=== PATIENT | male | born 1985 | race Caucasian/White ===

== ENCOUNTER 2019-03-07 16:36 | Inpatient (IN) | payer OTHER ==
[2019-03-07 18:29] VITALS: BMI 26.9
--- NOTE | 2019-03-07 19:30 | HP ---
CIWA Score Nausea/Vomitin Muscle Tremors: 1-None Visible, but [place] Anxiety: 2 Agitation: 0-Normal Activity Paroxysmal Sweats: 2 Orientation: 0-Oriented Tacttile Disturbances: 1-Very Mild Itch/Numbness Auditory Disturbances: 0-None Visual Disturbances: 1-Very Mild Sensitivity Headache: 2-Mild CIWA-Ar Total Score: 12 - Admission Criteria OASAS Guidelines: Admission for Medically Managed Detox: Requires at least one of the followin. CIWA greater than 12 2. Seizures within the past 24 hours 3. Delirium tremens within the past 24 hours 4. Hallucinations within the past 24 hours 5. Acute intervention needed for co occurring medical disorder 6. Acute intervention needed for co occurring psychiatric disorder 7. Severe withdrawal that cannot be handled at a lower level of care (continued vomiting, continued diarrhea, abnormal vital signs) requiring intravenous medication and/or fluids 8. Patient presents the following: CIWA greater than 12 Admission Criteria Met: Admission criteria met Admitting History and Physical - Admission Chief Complaint: alcohol withdrawal sx History of Present Illness: Patient is a 33 yo homeless male with hx of alcohol and crack/cocaine dependence is here seeking inpatient detox d/t withdrawal sx. Reports hx of ETOH blackouts with last episode two weeks ago. Patient reports was evaluated at [facility] ED for kidney stones (did not bring discharge summary). Longest period of sobriety one months, approximately five months ago. PMHX: denies . Psych: depression, bipolar and anxiety. Denies SI/HI. History Source: Patient Limitations to Obtaining History: No Limitations - Smoking History Smoking history: Current every day smoker Have you smoked in the past 12 months: Yes Aproximately how many cigarettes per day: 20 - Alcohol/Substance Use Hx Alcohol Use: Yes Admission ROS S - HPI Allergies/Adverse Reactions: Allergies Allergy/AdvReac Type Severity Reaction Status Date / Time No Known Allergies Allergy Verified 03/07/19 18:23 Exam Limitations: No Limitations - Ebola screening Have you traveled outside of the country in the last 21 days: No Have you had contact with anyone from an Ebola affected area: No Do you have a fever: No - Review of Systems Constitutional: Changes in sleep, Unintentional Wgt. Loss EENT: reports: No Symptoms Reported Respiratory: reports: No Symptoms reported Cardiac: reports: No Symptoms Reported GI: reports: Nausea, Poor Appetite, Poor Fluid Intake, Vomiting : reports: See HPI Musculoskeletal: reports: No Symptoms Reported, Back Pain Integumentary: reports: No Symptoms Reported Neuro: reports: No Symptoms reported Endocrine: reports: Increased Thirst Hematology: reports: No Symptoms Reported Psychiatric: reports: Orientated x3, Depressed Other Systems: Reviewed and Negative Patient History - Patient Medical History Hx Anemia: No Hx Asthma: No Hx Chronic Obstructive Pulmonary Disease (COPD): No Hx Cancer: No Hx Cardiac Disorders: No Hx Congestive Heart Failure: No Hx Hypertension: No Hx Hypercholesterolemia: No Hx Pacemaker: No HX Cerebrovascular Accident: No Hx Seizures: No Hx Dementia: No Hx Diabetes: No Hx Gastrointestinal Disorders: No Hx Liver Disease: No Hx Genitourinary Disorders: No Hx Sexually Transmitted Disorders: No Hx Renal Disease (ESRD): No Hx Thyroid Disease: No Hx Human Immunodeficiency Virus (HIV): No (negative) Hx Hepatitis C: No Hx Depression: Yes Hx Suicide Attempt: No (DENIES) Hx Bipolar Disorder: Yes Hx Schizophrenia: No - Patient Surgical History Past Surgical History: No Hx Neurologic Surgery: No Hx Cataract Extraction: No Hx Cardiac Surgery: No Hx Lung Surgery: No Hx Breast Surgery: No Hx Breast Biopsy: No Hx Abdominal Surgery: No Hx Appendectomy: No Hx Cholecystectomy: No Hx Genitourinary Surgery: No Hx Section: No Hx Orthopedic Surgery: Yes (FX RIGHT FOREARM IN 2012) Anesthesia Reaction: No - PPD History Previous Implant?: No Documented Results: Negative w/proof Date: 01/28/14 Results: 0 MM PPD to be Administered?: Yes - Smoking Cessation Smoking history: Current every day smoker Have you smoked in the past 12 months: Yes Aproximately how many cigarettes per day: 20 Cigars Per Day: 0 Hx Chewing Tobacco Use: No Initiated information on smoking cessation: Yes 'Breaking Loose' booklet given: 03/07/19 - Substance & Tx. History Hx Alcohol Use: Yes Hx Substance Use: Yes Substance Use Type: Alcohol, Cocaine, Marijuana Hx Substance Use Treatment: Yes ([facility] two weeks ago ) - Substances abused Alcohol Substance route: Oral Frequency: Daily Amount used: BEER- 2 x SIX PACK + 1 pint of liquor Age of first use: 16 Date of last use: 03/07/19 Crack Substance route: Smoking Frequency: Daily Amount used: 5 BAGS Age of first use: 29 Date of last use: 03/06/19 Admission Physical Exam BHS - Vital Signs Vital Signs: Vital Signs - 24 hr 03/07/19 18:07 Temperature 98.4 F Pulse Rate 82 Respiratory 18 Rate Blood Pressure 99/59 L - Physical General Appearance: Yes: Appropriately Dressed (malodorous), Thin, Sweating, Anxious HEENTM: Yes: EOMI, Hearing grossly Normal, Normal ENT Inspection, Normocephalic , Normal Voice, ANGELA, Pharynx Normal, Tm's normal Respiratory: Yes: Chest Non-Tender, Lungs Clear, Normal Breath Sounds, No Respiratory Distress, No Accessory Muscle Use Neck: Yes: Within Normal Limits Breast: Yes: Breast Exam Deferred Cardiology: Yes: Regular Rhythm, Regular Rate Abdominal: Yes: Normal Bowel Sounds, Non Tender, Flat, Soft Genitourinary: Yes: Within Normal Limits Back: Yes: Normal Inspection Musculoskeletal: Yes: full range of Motion, Gait Steady, Pelvis Stable Extremities: Yes: Normal Capillary Refill, Normal Inspection, Normal Range of Motion, Non-Tender Neurological: Yes: 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 NML intact, Fully Oriented, Alert, Motor Strength 5/5, Depressed Affect Integumentary: Yes: Normal Color, Dry, Warm Lymphatic: Yes: Within Normal Limits - Diagnostic (1) Alcohol dependence with uncomplicated withdrawal Current Visit: Yes Status: Acute (2) Cocaine dependence Current Visit: Yes Status: Chronic Qualifiers: Complication of substance-induced condition: with unspecified complication (3) Nicotine dependence Current Visit: Yes Status: Chronic Qualifiers: Nicotine product type: cigarettes (4) Psychiatric disorder Current Visit: Yes Status: Suspected Cleared for Admission [facility] - Detox or Rehab [facility] Level of Care: Medically Managed Detox Regimen/Protocol: Librium Breathalyzer - Breathalyzer Breathalyzer: 0 Urine Drug Screen - Test Device Lot number: [id number] Expiration date: 09/24/20 - Control Is test valid?: Yes - Results Drug screen NEGATIVE: No Urine drug screen results: THC-Marijuana, MARILUZ-Cocaine, MOP-Opiates, BZO- Benzodiazepines Inpatient Rehab Admission - Rehab Decision to Admit Inpatient rehab admission?: No
[2019-03-07] MEDS ORDERED: ACETAMINOPHEN 325 MG TABLET (FP) PO PRN ×2 (19:32)
[2019-03-07] MEDS ORDERED: chlordiazePOXIDE HCL 10 MG CAPSULE PO PRN (19:32)
[2019-03-07] MEDS ORDERED: IBUPROFEN 400 MG TABLET (FP) PO PRN (19:32)
[2019-03-07] MEDS ORDERED: METHOCARBAMOL 500 MG TABLET PO PRN (19:32)
[2019-03-07] MEDS ORDERED: MAGNESIUM CITRATE 300 ML BOTTLE PO PRN (19:32)
[2019-03-07] MEDS ORDERED: NICOTINE POLACRILEX 2 MG GUM BUC PRN (19:32)
[2019-03-07] MEDS ORDERED: hydrOXYzine PAMOATE 25 MG CAPSULE (FP) PO PRN (19:32)
[2019-03-07] MEDS ORDERED: BISMUTH SUBSALICYLATE 524 MG/30 ML UD PO PRN (19:32)
[2019-03-07] MEDS ORDERED: MENTHOL/PHENOL 1 EACH UD MM PRN (19:32)
[2019-03-07] MEDS ORDERED: MAGNESIUM HYDROX 2400MG/30ML ORAL SUSPENSION 30 ML CUP PO PRN (19:32)
[2019-03-07] MEDS ORDERED: MAG HYDROX/AL HYDROX/SIMETH 30 ML UNIT-DOSE CUP PO PRN (19:32)
[2019-03-07] MEDS ORDERED: PNEUMOC 13-VAL CONJ-DIP CRM/PF 0.5 ML DISP.SYRIN IM ONE (19:50)
[2019-03-07] MEDS: MELATONIN 5 MG TABLETS PO PRN (20:29)
[2019-03-07] MEDS: chlordiazePOXIDE HCL 25 MG CAPSULE PO SCH (20:29)
[2019-03-07] MEDS: THIAMINE HCL 100 MG TABLET (FP) PO SCH (21:29)
[2019-03-08] MEDS: chlordiazePOXIDE HCL 25 MG CAPSULE PO SCH ×3 (05:42→22:56)
--- NOTE | 2019-03-08 09:01 | EKG ---
Test Reason : Blood Pressure : / mmHG Vent. Rate : 071 BPM Atrial Rate : 071 BPM P-R Int : 144 ms QRS Dur : 084 ms QT Int : 392 ms P-R-T Axes : 036 056 042 degrees QTc Int : 425 ms NORMAL SINUS RHYTHM NORMAL ECG NO PREVIOUS ECGS AVAILABLE Confirmed by MILLIE MAYA MD ([id number]) on 03/08/2019 9:00:58 AM Referred By: Confirmed By:MILLIE MAYA MD
[2019-03-08] MEDS: NICOTINE 14 MG/24 HOURS TOPICAL PATCH TD SCH (09:55)
[2019-03-08] MEDS: PRENATAL VITAMINS W/ FOLIC ACID TABLET (FP) PO SCH (09:55)
[2019-03-08 09:57] LABS: HEMATOCRIT 37.6 % (35.4-49); HEMOGLOBIN 12.7 GM/dL (11.7-16.9); MCH 32.8 pg (25.7-33.7); MCHC 33.9 g/dl (32.0-35.9); MEAN CELL VOLUME 96.8 fl (80-96); MEAN PLT VOLUME 7.8 fl (7.5-11.1); PLATELET COUNT 300 K/MM3 (134-434); RBC 3.88 M/mm3 (4.00-5.60); RDW 13.7 % (11.9-15.9)
[2019-03-08 10:24] LABS: ALBUMIN 3.7 g/dl (3.4-5.0); BILIRUBIN,TOTAL 0.6 mg/dL (0.2-1); BLOOD UREA NITROGEN 14.7 mg/dL (7-18); CREATININE 0.9 mg/dL (0.55-1.3); POTASSIUM 4.1 mmol/L (3.5-5.1); TOT PROT 6.4 g/dl (6.4-8.2)
[2019-03-08] MEDS ORDERED: FLU VACCINE QUAD 60 MCG/0.5 ML (MDV 19-20) IM ONE (12:00)
[2019-03-08] MEDS ORDERED: PNEUMOCOCCAL 23 VACCINE 0.5 ML VIAL IM ONE (12:00)
--- NOTE | 2019-03-08 13:37 | CONSULT ---
[facility] Psychiatric Consult - Data Date of interview: 03/08/19 Admission source: [facility] Identifying data: Revisit to [facility] and admission to [address] [place] [address] for this 33 y/o male self-referred for detoxification treatment. AUTUMN issues : alcohol, cocaine/crack, cannabis, nicotine. Patient is single, father of one, homeless, unemployed and supported on welfare. Substance Abuse History: Discussed with patient. Details in current [facility] report as follows : Smoking history: Current every day smoker. Have you smoked in the past 12 months: Yes. Aproximately how many cigarettes per day: 20. Cigars Per Day: 0. Hx Chewing Tobacco Use: No. Initiated information on smoking cessation : Yes. 'Breaking Loose' booklet given: 03/07/19. - Substance & Tx. History. Hx Alcohol Use: Yes. Hx Substance Use: Yes. Substance Use Type: Alcohol, Cocaine, Marijuana. Hx Substance Use Treatment: Yes ([facility] two weeks ago ). - Substances abused. Alcohol. Substance route: Oral. Frequency: Daily. Amount used: BEER- 2 x SIX PACK + 1 pint of liquor. Age of first use: 16. Date of last use: 03/07/19. Crack. Substance route: Smoking. Frequency: Daily. Amount used: 5 BAGS. Age of first use: 29. Date of last use: 03/06/19 Medical History: Patient endorses good general health. Psychiatric History: Patient admits to a history of one psychiatric hospitalization at [facility] (2014). Precipitant : of grand- mother and suicide attempt via self-mutilation in response to his loss. Mr Underwood endorses a number of diagnoses : MDD, Anxiety Disorder, Bipolar Disorder. NOt currently on any psychotropic medications. Used to be prescribed trazodone. Patient indicates that he has dropped out of OPD care at the [facility] clinic. Physical/Sexual Abuse/Trauma History: Traumas : deaths of mother (three years ago) + grand-mother (2014). Additional Comment: Urine drug screen results: THC-Marijuana, MARILUZ-Cocaine, MOP- Opiates, BZO-Benzodiazepines. Noted. Mental Status Exam - Mental Status Exam Alert and Oriented to: Time, Place, Person Cognitive Function: Good Patient Appearance: Well Groomed Mood: Withdrawn, Anxious, Hopeful Affect: Mood Congruent, Constricted Patient Behavior: Fatigued, Appropriate, Cooperative Speech Pattern: Clear Voice Loudness: Normal Thought Process: Intact, Goal Oriented Thought Disorder: Not Present Hallucinations: Denies Suicidal Ideation: Denies Homicidal Ideation: Denies Insight/Judgement: Poor Sleep: Poorly, Difficulty falling asleep Appetite: Good Gait/Station: Normal Psychiatric Findings - Problem List ([place] 1, 2,3) (1) Alcohol dependence with uncomplicated withdrawal Current Visit: Yes Status: Acute (2) Cocaine dependence Current Visit: Yes Status: Chronic Qualifiers: Complication of substance-induced condition: with unspecified complication (3) Cannabis dependence Current Visit: Yes Status: Chronic (4) Nicotine dependence Current Visit: Yes Status: Chronic Qualifiers: Nicotine product type: cigarettes (5) Substance induced mood disorder Current Visit: Yes Status: Chronic (6) Insomnia Current Visit: Yes Status: Chronic - Initial Treatment Plan Initial Treatment Plan: Psychoeducation. Sleep hygiene. Detoxification. Support. AA meetings. Resumed, at patient's request : trazodone 50 mg po hs. Side effects/benefits are discussed with patient (made aware of potential for priapism). Patient agrees with plan of care. Observation.
--- NOTE | 2019-03-08 13:55 | PN ---
[facility] CIWA - CIWA Score Nausea/Vomitin-No Nausea/No Vomiting Muscle Tremors: 1-None Visible, but [place] Anxiety: 1-Mildly Anxious Agitation: 4-Moderately Restless Paroxysmal Sweats: 1-Minimal Palms Moist Orientation: 0-Oriented Tacttile Disturbances: 0-None Auditory Disturbances: 0-None Visual Disturbances: 0-None Headache: 0-None Present CIWA-Ar Total Score: 7 [facility] Progress Note (SOAP) Subjective: Shakes and sweats Objective: 03/08/19 13:52 Vital Signs Temperature 98.8 F 03/08/19 13:11 Pulse Rate 81 03/08/19 13:11 Respiratory Rate 18 03/08/19 13:11 Blood Pressure 112/56 L 03/08/19 13:11 O2 Sat by Pulse Oximetry (%) Laboratory Tests 03/08/19 03/08/19 03/08/19 07:15 07:15 07:15 WBC 6.0 RBC 3.88 L Hgb 12.7 Hct 37.6 MCV 96.8 H MCH 32.8 MCHC 33.9 RDW 13.7 Plt Count 300 MPV 7.8 Sodium 140 Potassium 4.1 Chloride 107 Carbon Dioxide 29 Anion Gap 5 L BUN 14.7 Creatinine 0.9 Est GFR (CKD-EPI)AfAm 128.70 Est GFR (CKD-EPI)NonAf 111.04 Random Glucose 101 Calcium 9.0 Total Bilirubin 0.6 AST 27 ALT 32 Alkaline Phosphatase 54 Total Protein 6.4 Albumin 3.7 RPR Titer Nonreactive HIV 1&2 Antibody Screen HIV P24 Antigen 03/08/19 07:15 WBC RBC Hgb Hct MCV MCH MCHC RDW Plt Count MPV Sodium Potassium Chloride Carbon Dioxide Anion Gap BUN Creatinine Est GFR (CKD-EPI)AfAm Est GFR (CKD-EPI)NonAf Random Glucose Calcium Total Bilirubin AST ALT Alkaline Phosphatase Total Protein Albumin RPR Titer HIV 1&2 Antibody Screen Negative HIV P24 Antigen Negative Labs noted [id number] Ambulating No acute distress noted Assessment: 03/08/19 13:54 Withdrawal symptoms noted Plan: Continue with detox Encouraged fluids
[2019-03-08] MEDS: MELATONIN 5 MG TABLETS PO PRN (22:57)
[2019-03-08] MEDS: THIAMINE HCL 100 MG TABLET (FP) PO SCH (22:57)
[2019-03-09] MEDS: chlordiazePOXIDE 5 MG CAPSULE PO SCH ×3 (05:27→22:18)
[2019-03-09] MEDS: NICOTINE 14 MG/24 HOURS TOPICAL PATCH TD SCH (10:57)
[2019-03-09] MEDS: PRENATAL VITAMINS W/ FOLIC ACID TABLET (FP) PO SCH (10:57)
[2019-03-09 12:27] LABS: PH,URINE 7.5 (5.0-8.0); URINE APPEARANCE CLEAR; URINE BILIRUBIN NEGATIVE (NEGATIVE); URINE COLOR YELLOW; URINE GLUCOSE (UA) NEGATIVE (NEGATIVE); URINE KETONE NEGATIVE (NEGATIVE); URINE LEUK ESTERASE NEGATIVE (NEGATIVE); URINE NITRITE NEGATIVE (NEGATIVE); URINE PROTEIN NEGATIVE (NEGATIVE); URINE UROBILINOGEN 0.2 mg/dL (0.2-1.0)
--- NOTE | 2019-03-09 14:40 | PN ---
[facility] CIWA - CIWA Score Nausea/Vomitin-No Nausea/No Vomiting Muscle Tremors: 2 Anxiety: 1-Mildly Anxious Agitation: 1-Slight > Activity Paroxysmal Sweats: 2 Orientation: 0-Oriented Tacttile Disturbances: 0-None Auditory Disturbances: 0-None Visual Disturbances: 0-None Headache: 0-None Present CIWA-Ar Total Score: 6 [facility] Progress Note (SOAP) Subjective: Tremor Objective: 03/09/19 14:39 Last Vital Signs Temp Pulse Resp BP Pulse Ox 97.5 F L 71 18 106/62 03/09/19 09:30 03/09/19 09:30 03/09/19 09:30 03/09/19 09:30 Laboratory Tests 03/08/19 03/08/19 03/08/19 07:15 07:15 07:15 WBC 6.0 RBC 3.88 L Hgb 12.7 Hct 37.6 MCV 96.8 H MCH 32.8 MCHC 33.9 RDW 13.7 Plt Count 300 MPV 7.8 Sodium 140 Potassium 4.1 Chloride 107 Carbon Dioxide 29 Anion Gap 5 L BUN 14.7 Creatinine 0.9 Est GFR (CKD-EPI)AfAm 128.70 Est GFR (CKD-EPI)NonAf 111.04 Random Glucose 101 Calcium 9.0 Total Bilirubin 0.6 AST 27 ALT 32 Alkaline Phosphatase 54 Total Protein 6.4 Albumin 3.7 Urine Color Urine Appearance Urine pH Ur Specific [place] Urine Protein Urine Glucose (UA) Urine Ketones Urine Blood Urine Nitrite Urine Bilirubin Urine Urobilinogen Ur Leukocyte Esterase RPR Titer Nonreactive HIV 1&2 Antibody Screen HIV P24 Antigen 03/08/19 03/09/19 07:15 Unknown WBC RBC Hgb Hct MCV MCH MCHC RDW Plt Count MPV Sodium Potassium Chloride Carbon Dioxide Anion Gap BUN Creatinine Est GFR (CKD-EPI)AfAm Est GFR (CKD-EPI)NonAf Random Glucose Calcium Total Bilirubin AST ALT Alkaline Phosphatase Total Protein Albumin Urine Color Yellow Urine Appearance Clear Urine pH 7.5 D Ur Specific [place] 1.008 L Urine Protein Negative Urine Glucose (UA) Negative Urine Ketones Negative Urine Blood Negative Urine Nitrite Negative Urine Bilirubin Negative Urine Urobilinogen 0.2 Ur Leukocyte Esterase Negative RPR Titer HIV 1&2 Antibody Screen Negative HIV P24 Antigen Negative Labs reviewed Assessment: 03/09/19 14:39 Withdrawal sxs Plan: Continue detox Encouraged PO water intake
[2019-03-09] MEDS: THIAMINE HCL 100 MG TABLET (FP) PO SCH (22:18)
[2019-03-09] MEDS: MELATONIN 5 MG TABLETS PO PRN (22:18)
[2019-03-10] MEDS ORDERED: chlordiazePOXIDE HCL 10 MG CAPSULE PO PRN
[2019-03-10] MEDS ORDERED: chlordiazePOXIDE HCL 10 MG CAPSULE PO SCH (05:00)
[2019-03-10 09:11] VITALS: BP 115/54; PULSE 88; TEMP 98.1
--- NOTE | 2019-03-10 09:29 | DS ---
[facility] Detox Discharge Summary Admission Date: 03/07/19 Discharge Date: 03/10/19 - History Present History: Alcohol Dependence, Cannabis Dependence, Cocaine Dependence - Physical Exam Results Vital Signs: Vital Signs Temperature 98.1 F 03/10/19 09:10 Pulse Rate 88 03/10/19 09:10 Respiratory Rate 16 03/10/19 09:10 Blood Pressure 115/54 L 03/10/19 09:10 O2 Sat by Pulse Oximetry (%) Pertinent Admission Physical Exam Findings: Vital Signs Temperature 98.1 F 03/10/19 09:10 Pulse Rate 88 03/10/19 09:10 Respiratory Rate 16 03/10/19 09:10 Blood Pressure 115/54 L 03/10/19 09:10 O2 Sat by Pulse Oximetry (%) Laboratory Tests 03/08/19 03/08/19 03/08/19 07:15 07:15 07:15 WBC 6.0 RBC 3.88 L Hgb 12.7 Hct 37.6 MCV 96.8 H MCH 32.8 MCHC 33.9 RDW 13.7 Plt Count 300 MPV 7.8 Sodium 140 Potassium 4.1 Chloride 107 Carbon Dioxide 29 Anion Gap 5 L BUN 14.7 Creatinine 0.9 Est GFR (CKD-EPI)AfAm 128.70 Est GFR (CKD-EPI)NonAf 111.04 Random Glucose 101 Calcium 9.0 Total Bilirubin 0.6 AST 27 ALT 32 Alkaline Phosphatase 54 Total Protein 6.4 Albumin 3.7 Urine Color Urine Appearance Urine pH Ur Specific [place] Urine Protein Urine Glucose (UA) Urine Ketones Urine Blood Urine Nitrite Urine Bilirubin Urine Urobilinogen Ur Leukocyte Esterase RPR Titer Nonreactive HIV 1&2 Antibody Screen HIV P24 Antigen 03/08/19 03/09/19 07:15 Unknown WBC RBC Hgb Hct MCV MCH MCHC RDW Plt Count MPV Sodium Potassium Chloride Carbon Dioxide Anion Gap BUN Creatinine Est GFR (CKD-EPI)AfAm Est GFR (CKD-EPI)NonAf Random Glucose Calcium Total Bilirubin AST ALT Alkaline Phosphatase Total Protein Albumin Urine Color Yellow Urine Appearance Clear Urine pH 7.5 D Ur Specific [place] 1.008 L Urine Protein Negative Urine Glucose (UA) Negative Urine Ketones Negative Urine Blood Negative Urine Nitrite Negative Urine Bilirubin Negative Urine Urobilinogen 0.2 Ur Leukocyte Esterase Negative RPR Titer HIV 1&2 Antibody Screen Negative HIV P24 Antigen Negative aaox3 ambulating no acute distress - Treatment Hospital Course: Detox Protocol Followed, Detoxed Safely, Responded well, Discharged Condition Good, Rehab Referral Accepted Patient has Accepted a Rehab Referral to: referral to [facility] - Medication Discharge Medications: Ambulatory Orders NK [No Known Home Medication] 03/07/19 - Diagnosis (1) Alcohol dependence with uncomplicated withdrawal Current Visit: Yes Status: Chronic (2) Cannabis dependence Current Visit: Yes Status: Chronic (3) Cocaine dependence Current Visit: Yes Status: Chronic Qualifiers: Complication of substance-induced condition: with unspecified complication (4) Insomnia Current Visit: Yes Status: Chronic (5) Nicotine dependence Current Visit: Yes Status: Chronic Qualifiers: Nicotine product type: cigarettes Substance use status: uncomplicated Qualified Code(s): F17.210 - Nicotine dependence, cigarettes, uncomplicated (6) Substance induced mood disorder Current Visit: Yes Status: Chronic (7) Psychiatric disorder Current Visit: Yes Status: Suspected (8) Substance-induced sleep disorder Current Visit: No Status: Acute (9) Bipolar disorder Current Visit: No Status: Chronic (10) Depression Current Visit: No Status: Chronic - AMA Did Patient Leave Against Medical Advice: No
[2019-03-11] MEDS ORDERED: chlordiazePOXIDE HCL 10 MG CAPSULE PO ONE (05:00)
== END 2019-03-10 09:52 | disposition home or self-care (01) | DRG 774 ==
LOC: YASAS 16:36 → Y6N 19:49
PROVIDERS: ADMIT Allergy & Immunology; ATTEND Allergy & Immunology
PROC: HZ2ZZZZ Detoxification Services for Substance Abuse Treatment (ICD-10-PCS; principal; 2019-03-07)
DX: F10.230 Alcohol dependence with withdrawal, uncomplicated (principal); F14.20 Cocaine dependence, uncomplicated; F12.20 Cannabis dependence, uncomplicated; F17.213 Nicotine dependence, cigarettes, with withdrawal; F19.24 Other psychoactive substance dependence with psychoactive substance-induced mood disorder; F19.282 Other psychoactive substance dependence with psychoactive substance-induced sleep disorder; F99 Mental disorder, not otherwise specified; F31.9 Bipolar disorder, unspecified; G47.00 Insomnia, unspecified; Z59.0 Homelessness
CPT/HCPCS: 36415; 80053; 81003; 85027; 86593; 87389; 90732; 93005; 93010; G0008; G0009; Q2036

== ENCOUNTER 2019-04-01 09:36 | Inpatient (IN) | payer OTHER ==
[2019-04-01 10:09] VITALS: BMI 27.6
--- NOTE | 2019-04-01 11:00 | HP ---
CIWA Score Nausea/Vomitin Muscle Tremors: 3 Anxiety: 3 Agitation: 0-Normal Activity Paroxysmal Sweats: No Perspiration Orientation: 0-Oriented Tacttile Disturbances: 1-Very Mild Itch/Numbness Auditory Disturbances: 2-Mild Harshness/Frighten Visual Disturbances: 2-Mild Sensitivity Headache: 2-Mild CIWA-Ar Total Score: 15 - Admission Criteria OASAS Guidelines: Admission for Medically Managed Detox: Requires at least one of the followin. CIWA greater than 12 2. Seizures within the past 24 hours 3. Delirium tremens within the past 24 hours 4. Hallucinations within the past 24 hours 5. Acute intervention needed for co occurring medical disorder 6. Acute intervention needed for co occurring psychiatric disorder 7. Severe withdrawal that cannot be handled at a lower level of care (continued vomiting, continued diarrhea, abnormal vital signs) requiring intravenous medication and/or fluids 8. Admitting History and Physical - Admission Chief Complaint: Mr. Underwood presents today stating " I wanted to get some help" "the last time I had it I fooled myself". He states that alcohol has "become a big problem for me". History of Present Illness: Mr. Underwood presents today stating " I wanted to get some help" "the last time I had it I fooled myself". He states that alcohol has "become a big problem for me". PMH: noncontributory Psych; bipolar, anxiety Substance use History: EtOH: first use age 15 yo, last use yesterday/this am, quantinty 2 t6 packs of 16 ounce beer. Vodka/hard liquor every other day, one pint. Crack cocaine: first use age 29y, last use yesterday, am[place]: $200/day Nicotine: first use age 16 y, last use: yesterday: one ppd Marijuana: first age 13 y, last use yesterday, quantity: 2 bags/day Denies: heroin, methadone, benzodiazepines History Source: Patient Limitations to Obtaining History: No Limitations - Smoking History Smoking history: Current every day smoker Have you smoked in the past 12 months: Yes Aproximately how many cigarettes per day: 20 - Alcohol/Substance Use Hx Alcohol Use: Yes Admission ROS S - HPI Allergies/Adverse Reactions: Allergies Allergy/AdvReac Type Severity Reaction Status Date / Time No Known Allergies Allergy Verified 04/01/19 09:58 Exam Limitations: No Limitations - Ebola screening Have you traveled outside of the country in the last 21 days: No Have you had contact with anyone from an Ebola affected area: No Have you been sick,other than usual withdrawal symptoms: No Do you have a fever: No - Review of Systems Constitutional: No Symptoms Reported, Unexplained wgt Loss (~ 20-30 lb weight loss over the past 3 weeks) EENT: reports: No Symptoms Reported Respiratory: reports: No Symptoms reported Cardiac: reports: No Symptoms Reported GI: reports: See HPI, Diarrhea : reports: No Symptoms Reported Musculoskeletal: reports: No Symptoms Reported Integumentary: reports: No Symptoms Reported Neuro: reports: Headache Endocrine: reports: Increased Thirst, Unexplained Weight Gain Hematology: reports: No Symptoms Reported Psychiatric: reports: Anxious Patient History - Patient Medical History Hx Anemia: No Hx Asthma: No Hx Chronic Obstructive Pulmonary Disease (COPD): No Hx Cancer: No Hx Cardiac Disorders: No Hx Congestive Heart Failure: No Hx Hypertension: No Hx Hypercholesterolemia: No Hx Pacemaker: No HX Cerebrovascular Accident: No Hx Seizures: No Hx Dementia: No Hx Diabetes: No Hx Gastrointestinal Disorders: No Hx Liver Disease: No Hx Genitourinary Disorders: No Hx Sexually Transmitted Disorders: No Hx Renal Disease (ESRD): No Hx Thyroid Disease: No Hx Human Immunodeficiency Virus (HIV): No (negative) Hx Hepatitis C: No Hx Depression: Yes Hx Suicide Attempt: No Hx Bipolar Disorder: Yes Hx Schizophrenia: No - Patient Surgical History Past Surgical History: No Hx Neurologic Surgery: No Hx Cataract Extraction: No Hx Cardiac Surgery: No Hx Lung Surgery: No Hx Breast Surgery: No Hx Breast Biopsy: No Hx Abdominal Surgery: No Hx Appendectomy: No Hx Cholecystectomy: No Hx Genitourinary Surgery: No Hx Section: No Hx Orthopedic Surgery: Yes (FX RIGHT FOREARM IN 2013) Anesthesia Reaction: No - PPD History Date: 03/09/19 Results: 0 MM - Smoking Cessation Smoking history: Current every day smoker Have you smoked in the past 12 months: Yes Aproximately how many cigarettes per day: 20 Cigars Per Day: 0 Hx Chewing Tobacco Use: No Initiated information on smoking cessation: Yes 'Breaking Loose' booklet given: 04/01/19 - Substances abused Benzodiazepine (Klonopin) Substance route: Oral Frequency: Daily Amount used: 2 6pks beer Age of first use: 15 Date of last use: 04/01/19 Marijuana/Hashish Substance route: Smoking Frequency: Daily Amount used: 2 bags Age of first use: 13 Date of last use: 03/31/19 Rohpnol Substance route: Smoking Amount used: $200 Age of first use: 29 Date of last use: 04/01/19 Admission Physical Exam [facility] - Vital Signs Vital Signs: Vital Signs - 24 hr 04/01/19 09:58 Temperature 97.3 F L Pulse Rate 74 Respiratory 14 Rate Blood Pressure 101/63 - Physical General Appearance: Yes: No Apparent Distress, Nourished, Appropriately Dressed HEENTM: Yes: EOMI, Hearing grossly Normal, Normocephalic, Normal Voice Respiratory: Yes: Lungs Clear, Normal Breath Sounds, No Respiratory Distress Neck: Yes: No masses,lesions,Nodules Breast: Yes: Breast Exam Deferred Cardiology: Yes: Regular Rate, S1, S2 Abdominal: Yes: Normal Bowel Sounds, Non Tender, Flat, Soft Genitourinary: Yes: Other (deferred) Back: Yes: Normal Inspection Musculoskeletal: Yes: Within Normal Limits Extremities: Yes: Within Normal Limits Neurological: 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: 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 NML intact, Fully Oriented, Alert Integumentary: Yes: Within Normal Limits Lymphatic: Yes: Within Normal Limits - Diagnostic (1) Anxiety Current Visit: Yes Status: Chronic (2) Alcohol dependence with uncomplicated withdrawal Current Visit: Yes Status: Acute (3) Cannabis dependence Current Visit: Yes Status: Chronic (4) Cocaine dependence Current Visit: Yes Status: Chronic Qualifiers: Complication of substance-induced condition: with unspecified complication Cleared for Admission [facility] - Detox or Rehab [facility] Level of Care: Medically Managed Breathalyzer - Breathalyzer Breathalyzer: 0 Urine Drug Screen - Test Device Lot number: [id number] Expiration date: 01/20/21 - Control Is test valid?: Yes - Results Drug screen NEGATIVE: No Urine drug screen results: THC-Marijuana, MARILUZ-Cocaine Inpatient Rehab Admission - Rehab Decision to Admit Inpatient rehab admission?: No
[2019-04-01] MEDS ORDERED: hydrOXYzine PAMOATE 25 MG CAPSULE (FP) PO PRN (11:08)
[2019-04-01] MEDS ORDERED: IBUPROFEN 400 MG TABLET (FP) PO PRN (11:08)
[2019-04-01] MEDS ORDERED: ACETAMINOPHEN 325 MG TABLET (FP) PO PRN ×2 (11:08)
[2019-04-01] MEDS ORDERED: MAGNESIUM HYDROX 2400MG/30ML ORAL SUSPENSION 30 ML CUP PO PRN (11:08)
[2019-04-01] MEDS ORDERED: MAG HYDROX/AL HYDROX/SIMETH 30 ML UNIT-DOSE CUP PO PRN (11:08)
[2019-04-01] MEDS ORDERED: MELATONIN 5 MG TABLETS PO PRN (11:08)
[2019-04-01] MEDS ORDERED: METHOCARBAMOL 500 MG TABLET PO PRN (11:08)
[2019-04-01] MEDS ORDERED: BISMUTH SUBSALICYLATE 262 MG/15 ML BTL PO PRN (11:08)
[2019-04-01] MEDS ORDERED: MENTHOL/PHENOL 1 EACH UD MM PRN (11:08)
[2019-04-01] MEDS ORDERED: MAGNESIUM CITRATE 300 ML BOTTLE PO PRN (11:08)
[2019-04-01] MEDS ORDERED: chlordiazePOXIDE HCL 25 MG CAPSULE PO PRN (11:08)
--- NOTE | 2019-04-01 15:06 | PN ---
S Progress Note Note: Patient was approached at bedside. He was found profoundly asleep not responding to verbal stimuli
[2019-04-01 15:55] LABS: HEMATOCRIT 39.2 % (35.4-49); HEMOGLOBIN 13.3 GM/dL (11.7-16.9); MCH 32.9 pg (25.7-33.7); MEAN CELL VOLUME 96.6 fl (80-96); MEAN PLT VOLUME 7.6 fl (7.5-11.1); PLATELET COUNT 307 K/MM3 (134-434); RBC 4.06 M/mm3 (4.00-5.60); WHITE BLOOD COUNT 6.5 K/mm3 (4.0-10.0)
[2019-04-01 16:22] LABS: ALBUMIN 4.5 g/dl (3.4-5.0); BILIRUBIN,TOTAL 1.7 mg/dL (0.2-1); BLOOD UREA NITROGEN 13.9 mg/dL (7-18); CALCIUM 9.6 mg/dL (8.5-10.1); POTASSIUM 3.7 mmol/L (3.5-5.1); TOT PROT 7.8 g/dl (6.4-8.2)
[2019-04-01] MEDS: THIAMINE HCL 100 MG TABLET (FP) PO SCH (22:01)
[2019-04-01] MEDS: chlordiazePOXIDE HCL 25 MG CAPSULE PO SCH (22:02)
[2019-04-02] MEDS: chlordiazePOXIDE HCL 25 MG CAPSULE PO SCH ×4 (05:54→22:09)
--- NOTE | 2019-04-02 08:54 | CONSULT ---
[facility] Psychiatric Consult - Data Date of interview: 04/02/19 Admission source: Self-referred Identifying data: Mr Underwood is a 33 years old single male, unemployed receiving public assistance, homeless seeking detox treatment for alcohol cocaine and cannabis Substance Abuse History: Reports history of alcohol, crack cocaine and marijuana use. Refer to addiction counselor's summary for further information Medical History: Significant for history of dislocation right shoulder in 2012 and orthosurgery for fracture right forearm as a child. Smokes cigarettes 1 ppd Psychiatric History: Patient is well known for previous admission to this facilty. History remains consistent. He reports that his first psychiatric contact occured in 2014 when he was admitted to [facility] for suicidal attempt via self-mutilation following the of his grandmother. He said that he was diagnosed with Bipolar depression and started on psychotropic medication. He said that he was referred to [facility] at same facility on discharge. During his most recent admission to this facility , he saw Dr Foster on 03/08/19 and told him that he dropped out of [facility] and stopped taking medication. He was prescribed Trazadone 50 mg/hs by Dr Foster. He now told expert medical writer that he was never given that medication. At present, denies experiencing psychotic, manic symptoms, S/H ideations. Request to take Trazadone for sleep Physical/Sexual Abuse/Trauma History: Denies history of abuse as a child or DV relationship as an adult. However he cites as a traumatic event when on account of mother's addiction, his grandmother was awarded custody of him Mental Status Exam - Mental Status Exam Alert and Oriented to: Time, Place Cognitive Function: Fair Patient Appearance: Well Groomed Mood: Depressed Affect: Appropriate Patient Behavior: Cooperative Speech Pattern: Clear Voice Loudness: Normal Thought Process: Intact, Goal Oriented Hallucinations: Denies Suicidal Ideation: Denies Homicidal Ideation: Denies Insight/Judgement: Poor Sleep: Poorly Appetite: Good Muscle strength/Tone: Normal Gait/Station: Normal Psychiatric Findings - Problem List ([place] 1, 2,3) (1) Mood disorder Current Visit: Yes Status: Chronic (2) Bipolar disorder Current Visit: Yes Status: Ruled-out (3) Substance induced mood disorder Current Visit: Yes Status: Acute (4) Substance-induced sleep disorder Current Visit: No Status: Acute (5) Alcohol dependence with uncomplicated withdrawal Current Visit: Yes Status: Acute (6) Cocaine dependence Current Visit: Yes Status: Acute Qualifiers: Complication of substance-induced condition: with unspecified complication (7) Cannabis dependence Current Visit: Yes Status: Acute (8) Nicotine dependence Current Visit: No Status: Chronic Qualifiers: Nicotine product type: cigarettes Substance use status: uncomplicated Qualified Code(s): F17.210 - Nicotine dependence, cigarettes, uncomplicated - Initial Treatment Plan Initial Treatment Plan: 1) Start Trazadone 50 mg po HS. 2) Continue inpatient detoxification
[2019-04-02] MEDS: PRENATAL VITAMINS W/ FOLIC ACID TABLET (FP) PO SCH (10:12)
[2019-04-02] MEDS: NICOTINE 21 MG/24 HOURS TOPICAL PATCH TD SCH (10:45)
--- NOTE | 2019-04-02 11:45 | PN ---
S CIWA - CIWA Score Nausea/Vomitin-Mild Nausea/No Vomiting Muscle Tremors: 2 Anxiety: 2 Agitation: 2 Paroxysmal Sweats: No Perspiration Orientation: 0-Oriented Tacttile Disturbances: 1-Very Mild Itch/Numbness Auditory Disturbances: 0-None Visual Disturbances: 0-None Headache: 2-Mild CIWA-Ar Total Score: 10 S Progress Note (SOAP) Subjective: alert,irritable,anxious,interrupted sleep,trmeor Objective: 04/02/19 11:44 Vital Signs Temperature 98.4 F 04/02/19 08:53 Pulse Rate 78 04/02/19 08:53 Respiratory Rate 17 04/02/19 08:53 Blood Pressure 115/57 L 04/02/19 08:53 O2 Sat by Pulse Oximetry (%) Laboratory Last Values WBC 6.5 K/mm3 (4.0-10.0) 04/01/19 11:35 RBC 4.06 M/mm3 (4.00-5.60) 04/01/19 11:35 Hgb 13.3 GM/dL (11.7-16.9) 04/01/19 11:35 Hct 39.2 % (35.4-49) 04/01/19 11:35 MCV 96.6 fl (80-96) H 04/01/19 11:35 MCH 32.9 pg (25.7-33.7) 04/01/19 11:35 MCHC 34.0 g/dl (32.0-35.9) 04/01/19 11:35 RDW 14.0 % (11.9-15.9) 04/01/19 11:35 Plt Count 307 K/MM3 (134-434) 04/01/19 11:35 MPV 7.6 fl (7.5-11.1) 04/01/19 11:35 Sodium 138 mmol/L (136-145) 04/01/19 11:35 Potassium 3.7 mmol/L (3.5-5.1) 04/01/19 11:35 Chloride 104 mmol/L (98-107) 04/01/19 11:35 Carbon Dioxide 27 mmol/L (21-32) 04/01/19 11:35 Anion Gap 7 MMOL/L (8-16) L 04/01/19 11:35 BUN 13.9 mg/dL (7-18) 04/01/19 11:35 Creatinine 1.0 mg/dL (0.55-1.3) 04/01/19 11:35 Est GFR (CKD-EPI)AfAm 113.31 04/01/19 11:35 Est GFR (CKD-EPI)NonAf 97.76 04/01/19 11:35 Random Glucose 93 mg/dL (74-106) 04/01/19 11:35 Calcium 9.6 mg/dL (8.5-10.1) 04/01/19 11:35 Total Bilirubin 1.7 mg/dL (0.2-1) H 04/01/19 11:35 AST 21 U/L (15-37) 04/01/19 11:35 ALT 31 U/L (13-61) 04/01/19 11:35 Alkaline Phosphatase 64 U/L (45-117) 04/01/19 11:35 Total Protein 7.8 g/dl (6.4-8.2) 04/01/19 11:35 Albumin 4.5 g/dl (3.4-5.0) 04/01/19 11:35 RPR Titer Nonreactive (NONREACTIVE) 04/01/19 11:35 HIV 1&2 Antibody Screen Negative 04/01/19 11:35 HIV P24 Antigen Negative 04/01/19 11:35 Assessment: 04/02/19 11:45 withdrawal symptom Plan: continue detox librium regimen,bili 1.7,repeat bili in am
[2019-04-02] MEDS: THIAMINE HCL 100 MG TABLET (FP) PO SCH (22:09)
[2019-04-02] MEDS: traZODone HCL 50 MG TABLET (FP) PO SCH (22:09)
[2019-04-03] MEDS: chlordiazePOXIDE HCL 25 MG CAPSULE PO SCH ×4 (06:08→22:24)
[2019-04-03] MEDS: NICOTINE 21 MG/24 HOURS TOPICAL PATCH TD SCH (10:26)
[2019-04-03] MEDS: PRENATAL VITAMINS W/ FOLIC ACID TABLET (FP) PO SCH (10:26)
--- NOTE | 2019-04-03 11:18 | PN ---
S CIWA - CIWA Score Nausea/Vomitin-Mild Nausea/No Vomiting Muscle Tremors: 1-None Visible, but [place] Anxiety: 1-Mildly Anxious Agitation: 1-Slight > Activity Paroxysmal Sweats: No Perspiration Orientation: 0-Oriented Tacttile Disturbances: 1-Very Mild Itch/Numbness Auditory Disturbances: 0-None Visual Disturbances: 0-None Headache: 2-Mild CIWA-Ar Total Score: 7 [facility] Progress Note (SOAP) Subjective: alert,irritable,anxious,interrupted sleep,tremor,pain in the body Objective: 04/03/19 11:16 Vital Signs Temperature 97.7 F 04/03/19 06:37 Pulse Rate 64 04/03/19 06:37 Respiratory Rate 16 04/03/19 06:37 Blood Pressure 109/60 04/03/19 06:37 O2 Sat by Pulse Oximetry (%) 04/03/19 11:17 Laboratory Results - last 24 hr 04/03/19 08:00 Total Bilirubin 0.2 Assessment: 04/03/19 11:17 withdrawal symptom Plan: continue detox librium regimen
[2019-04-03] MEDS: THIAMINE HCL 100 MG TABLET (FP) PO SCH (22:24)
[2019-04-03] MEDS: traZODone HCL 50 MG TABLET (FP) PO SCH (22:24)
[2019-04-04] MEDS ORDERED: chlordiazePOXIDE HCL 10 MG CAPSULE PO PRN
[2019-04-04] MEDS ORDERED: chlordiazePOXIDE HCL 10 MG CAPSULE PO SCH (05:00)
--- NOTE | 2019-04-04 09:41 | PN ---
[facility] CIWA - CIWA Score Nausea/Vomitin-No Nausea/No Vomiting Muscle Tremors: 1-None Visible, but [place] Anxiety: 1-Mildly Anxious Agitation: 0-Normal Activity Paroxysmal Sweats: No Perspiration Orientation: 0-Oriented Tacttile Disturbances: 0-None Auditory Disturbances: 7Continuous Hallucination Headache: 1-Very Mild [facility] Progress Note (SOAP) Subjective: alert,no complaint Objective: 04/04/19 09:39 Vital Signs Temperature 97.7 F 04/04/19 06:24 Pulse Rate 68 04/04/19 06:24 Respiratory Rate 16 04/04/19 06:24 Blood Pressure 123/63 04/04/19 06:24 O2 Sat by Pulse Oximetry (%) 04/04/19 09:40 no withdrawal symptom Assessment: 04/04/19 09:40 no withdrawal symptom Plan: discharge today,follow up with after care program as arrangement
--- NOTE | 2019-04-04 09:46 | DS ---
[facility] Detox Discharge Summary Admission Date: 04/01/19 Discharge Date: 04/04/19 - History Present History: Alcohol Dependence, Cannabis Dependence, Cocaine Dependence Additional Comments: alert,oriented x 3 ambulation on the unit heart normal heart sound,s1s2,no murmur lung clear,no wheezing no abdominal pain stable for discharge patient will go to elevate for further level of care time spending for discharge 30 mins Pertinent Past History: bipolar disorder - Physical Exam Results Vital Signs: Vital Signs Temperature 97.7 F 04/04/19 06:24 Pulse Rate 68 04/04/19 06:24 Respiratory Rate 16 04/04/19 06:24 Blood Pressure 123/63 04/04/19 06:24 O2 Sat by Pulse Oximetry (%) Pertinent Admission Physical Exam Findings: withdrawal signs and symptom Laboratory Last Values WBC 6.5 K/mm3 (4.0-10.0) 04/01/19 11:35 RBC 4.06 M/mm3 (4.00-5.60) 04/01/19 11:35 Hgb 13.3 GM/dL (11.7-16.9) 04/01/19 11:35 Hct 39.2 % (35.4-49) 04/01/19 11:35 MCV 96.6 fl (80-96) H 04/01/19 11:35 MCH 32.9 pg (25.7-33.7) 04/01/19 11:35 MCHC 34.0 g/dl (32.0-35.9) 04/01/19 11:35 RDW 14.0 % (11.9-15.9) 04/01/19 11:35 Plt Count 307 K/MM3 (134-434) 04/01/19 11:35 MPV 7.6 fl (7.5-11.1) 04/01/19 11:35 Sodium 138 mmol/L (136-145) 04/01/19 11:35 Potassium 3.7 mmol/L (3.5-5.1) 04/01/19 11:35 Chloride 104 mmol/L (98-107) 04/01/19 11:35 Carbon Dioxide 27 mmol/L (21-32) 04/01/19 11:35 Anion Gap 7 MMOL/L (8-16) L 04/01/19 11:35 BUN 13.9 mg/dL (7-18) 04/01/19 11:35 Creatinine 1.0 mg/dL (0.55-1.3) 04/01/19 11:35 Est GFR (CKD-EPI)AfAm 113.31 04/01/19 11:35 Est GFR (CKD-EPI)NonAf 97.76 04/01/19 11:35 Random Glucose 93 mg/dL (74-106) 04/01/19 11:35 Calcium 9.6 mg/dL (8.5-10.1) 04/01/19 11:35 Total Bilirubin 0.2 mg/dL (0.2-1) 04/03/19 08:00 AST 21 U/L (15-37) 04/01/19 11:35 ALT 31 U/L (13-61) 04/01/19 11:35 Alkaline Phosphatase 64 U/L (45-117) 04/01/19 11:35 Total Protein 7.8 g/dl (6.4-8.2) 04/01/19 11:35 Albumin 4.5 g/dl (3.4-5.0) 04/01/19 11:35 RPR Titer Nonreactive (NONREACTIVE) 04/01/19 11:35 HIV 1&2 Antibody Screen Negative 04/01/19 11:35 HIV P24 Antigen Negative 04/01/19 11:35 - Treatment Hospital Course: Detox Protocol Followed, Detoxed Safely, Responded well, Discharged Condition Good Patient has Accepted a Rehab Referral to: declined - Medication Discharge Medications: Ambulatory Orders NK [No Known Home Medication] 03/07/19 - Diagnosis (1) Alcohol dependence with uncomplicated withdrawal Current Visit: Yes Status: Acute (2) Cannabis dependence Current Visit: Yes Status: Acute (3) Cocaine dependence Current Visit: Yes Status: Acute Qualifiers: Complication of substance-induced condition: with unspecified complication (4) Bipolar disorder Current Visit: Yes Status: Ruled-out
[2019-04-04 10:03] VITALS: BP 105/50; PULSE 90; TEMP 98.1
[2019-04-05] MEDS ORDERED: chlordiazePOXIDE HCL 10 MG CAPSULE PO SCH (05:00)
[2019-04-06] MEDS ORDERED: chlordiazePOXIDE HCL 10 MG CAPSULE PO ONE (05:00)
== END 2019-04-04 09:51 | disposition home or self-care (01) | DRG 774 ==
LOC: YASAS 09:36 → Y6N 11:30
PROVIDERS: ADMIT Allergy & Immunology; ATTEND Allergy & Immunology
PROC: HZ2ZZZZ Detoxification Services for Substance Abuse Treatment (ICD-10-PCS; principal; 2019-04-01)
DX: F10.230 Alcohol dependence with withdrawal, uncomplicated (principal); F13.20 Sedative, hypnotic or anxiolytic dependence, uncomplicated; F14.20 Cocaine dependence, uncomplicated; F15.20 Other stimulant dependence, uncomplicated; F12.20 Cannabis dependence, uncomplicated; F17.210 Nicotine dependence, cigarettes, uncomplicated; F19.282 Other psychoactive substance dependence with psychoactive substance-induced sleep disorder; F19.24 Other psychoactive substance dependence with psychoactive substance-induced mood disorder; F31.9 Bipolar disorder, unspecified; F39 Unspecified mood [affective] disorder; F41.9 Anxiety disorder, unspecified
CPT/HCPCS: 36415; 80053; 82247; 85027; 86593; 87389